=== PATIENT | female | born 1975 ===

== ENCOUNTER 2024-03-30 03:08 | Emergency (ER) | payer OTHER ==
[~2024-03-30] VITALS: Ht 162.6 cm; Wt 54.4 kg
[~2024-03-30 03:08] MED LIST: AMOX500 PO; CODGUAEL PO; CRUTCH3 USE; HYDACE5 PO
[2024-03-30] MEDS ORDERED: Doxycycline Hyclate 100 MG TAB PO ONE (03:25)
[2024-03-30] MEDS ORDERED: Acetaminophen 500 MG Tab PO ONE (03:25)
[2024-03-30] MEDS ORDERED: DOXY100 PO (03:59)
== END 2024-03-30 04:03 | disposition home or self-care (01) ==
LOC: ER 03:08
DX: L02.413 Cutaneous abscess of right upper limb (principal); Z87.891 Personal history of nicotine dependence; Z79.899 Other long term (current) drug therapy
CPT/HCPCS: 10060; 99283-25; A9270

== ENCOUNTER 2024-11-09 18:10 | Emergency (ER) | payer OTHER ==
[~2024-11-09] VITALS: Ht 162.6 cm; Wt 54.4 kg
[~2024-11-09 18:10] MED LIST changes: +DOXY100 PO
[2024-11-10] MEDS ORDERED: CLIN300 PO (03:51)
== END 2024-11-09 19:55 | disposition left against medical advice (07) ==
LOC: ER 18:10
DX: L02.31 Cutaneous abscess of buttock (principal); Z53.29 Procedure and treatment not carried out because of patient's decision for other reasons
CPT/HCPCS: 99281

== ENCOUNTER 2024-11-10 01:48 | Emergency (ER) | payer OTHER ==
[~2024-11-10] VITALS: Ht 162.6 cm; Wt 54.4 kg
[2024-11-10] MEDS ORDERED: CLIN300 PO (03:51)
== END 2024-11-10 04:18 | disposition home or self-care (01) ==
LOC: ER 01:48
DX: L02.31 Cutaneous abscess of buttock (principal); L03.317 Cellulitis of buttock
CPT/HCPCS: 10060; 99283-25; A9270